=== PATIENT | female | born 1950 | race Hispanic/Latino ===

== ENCOUNTER → 2017-10-09 | Day surgery (SDC) | payer MEDICARE, OTHER ==
[2017-10-08 12:51] LABS: BASOPHILS # (AUTO) 0.1 (0.0-0.1); BASOPHILS % 0.7 % (0.0-1.0); EOSINOPHILS # (AUTO) 0.2 (0.0-0.4); EOSINOPHILS % 3.6 % (0.0-6.0); HEMATOCRIT 37.9 % (34.2-44.1); HEMOGLOBIN 12.3 g/dL (12.0-16.0); LYMPHOCYTES # (AUTO) 2.7 (1.0-3.2); LYMPHOCYTES % 40.2 % (18.0-39.1); MEAN CORPUSCULAR HEMOGLOBIN 29.7 pg (28-32); MEAN CORPUSCULAR HGB CONC 32.5 g/dL (31-35); MEAN CORPUSCULAR VOLUME 91.5 fL (81-99); MONOCYTES # (AUTO) 0.7 (0.2-0.8); MONOCYTES % 9.9 % (4.4-11.3); NEUTROPHILS # (AUTO) 3.1 (2.1-6.9); NEUTROPHILS % 45.5 % (38.7-80.0); PLATELET COUNT 224 x10e3/uL (140-360); RED BLOOD COUNT 4.14 x10e6/uL (3.6-5.1); RED CELL DISTRIBUTION WIDTH 12.8 % (11.7-14.4)
[2017-10-08 13:03] LABS: INR 0.88; PROTHROMBIN TIME 12.4 seconds (11.9-14.5)
[2017-10-08 13:10] LABS: ALANINE AMINOTRANSFERASE 19 IU/L (0-55); ALBUMIN 3.4 g/dL (3.5-5.0); ALBUMIN/GLOBULIN RATIO 0.9 (0.8-2.0); ALKALINE PHOSPHATASE 90 IU/L (40-150); BLOOD UREA NITROGEN 15 mg/dL (7-26); BUN/CREATININE RATIO 19 (6-25); CALCIUM 9.1 mg/dL (8.4-10.2); CARBON DIOXIDE 27 mmol/L (22-29); CHLORIDE 109 mmol/L (98-107); CHOL/HDL RATIO 3.2 (3.0-3.6); CHOLESTEROL 230 MD/DL (0-199); EST GLOMERULAR FILTRATION RATE > 60 ML/MIN (60-); GLUCOSE 89 mg/dL (74-118); HDL CHOLESTEROL 73 MG/DL (40-60); LDL CHOLESTEROL 139 MG/DL (60-130); SODIUM 142 mmol/L (136-145); TRIGLYCERIDES 89 MG/DL (0-149)
[~2017-10-09] VITALS: Ht 157.5 cm; Wt 72.1 kg
[~2017-10-09] MED LIST: ASPIRIN81 MG PO; FENTANYL CITRATE/PF 100MCG/2 ML INJ ONE; HEPARIN SOD/SOD CHLORIDE 2,000 ML ONE; IOPAMIDOL 370 MG/ML 200 ML INFUS..BTL INJ ONE; LIDOCAINE HCL 2% LOCAL 20 ML VIAL ONE; LOSARTAN-HCTZ1 EACH PO; MIDAZOLAM HCL 2 MG/2 ML VIAL ONE; SODIUM CHLORIDE 0.9% 1000ML 1,000 ML ONE
[2017-10-09 10:59] VITALS: BP 144/66
--- NOTE | 2017-10-09 17:00 | Operative Report ---
DATE OF PROCEDURE: October 09, 2017 PROCEDURE INDICATION: Chest pain concerning for angina pectoris, unstable, and carotid artery disease, severe, on Doppler ultrasound, concerns for TIA. PROCEDURES PERFORMED 1. Left heart catheterization. 2. Selective coronary angiography x2. 3. Aortic arch aortography. 4. Selective extracranial carotid artery angiography, bilateral. 5. Non-selective vertebral angiography, bilateral and extracranial. 6. Right common femoral artery 6-Italian Angio-Seal closure. PROCEDURE COMPLICATIONS: None. ESTIMATED BLOOD LOSS: Less than 15 mL. PROCEDURE SUMMARY: After consent was obtained, the patient was prepped and draped in a sterile fashion and the right femoral site was locally infiltrated with 2% Lidocaine. Access was obtained using micropuncture kit and a short 6-Italian sheath was placed. All catheters were railed over a leading J wire. JL4 6-Italian catheter was used for engagement of left main. A JL4 6-Italian engaged to the right coronary artery as well as across the aortic valve for hemodynamic measurements. A pigtail catheter was used for aortic arch aortography, and Ruiz I 5-Italian catheter was used for selective engagement of the common carotid arteries, bilaterally selectively to each one. FINDINGS: 1. No left ventriculogram was performed. LVEDP was in the 20-24 range. There was no significant gradient on pullback across the aortic valve. 2. Left main with luminal irregularities, enlarged caliber in the LAD and circumflex. 3. LAD had approximately 30% ostial stenosis, otherwise luminal irregularities. It gives multiple small diagonals and small septal perforators as it courses to the apex and it wraps around an end. 4. Circumflex gives a couple of obtuse marginals and this vessel has luminal irregularities. 5. The right coronary artery is dominant. It gives occluded branch, a couple of RV marginals at the mid portion and an RPDA and RPLV and terminal branches luminal irregularities otherwise throughout this vessel there is a focal area of 30% stenosis at the proximal portion. 6. The aortic arch has mild calcifications. It is type 2 aortic arch, Bovine, with common origin each of bilateral common carotid arteries from the innominate artery. The right subclavian artery also arises from the innominate artery. The left subclavian artery arises from a separate ostium from the aortic arch. Both vertebrals are patent. The right vertebral seems larger in caliber and more dominant than the left. The right vertebral artery seems to have in the area below the base of the skull and above the angle of the jaw an area of bead and strings morphology suspicious for mild to moderate fibromuscular dysplasia at this level. Otherwise, luminal irregularities are noted throughout the vertebral arteries in their extracranial portions. Each of those vertebral arteries arises from their respective subclavian arteries. 7. Common carotid arteries have luminal irregularities instilled in the bulb and pectoral carotid arteries. The right internal carotid artery in its distal portion from above the angle of the jaw to below the base of the skull has significant string and beads morphology consistent with severe, more than 70%, stenosis in the setting of fibromuscular dysplasia. Similarly, the left internal carotid artery at the distal portion has an area of beads and strings morphology between the area above the angle of the jaw to below the base of the skull. Again, at least moderate, more than 50%, beads and strings morphology consistent with fibromuscular dysplasia. CONCLUSION: 1. Fibromuscular dysplasia effecting bilateral distal internal carotid arteries, more pronounced on the right internal carotid artery and vertebral artery fibromuscular dysplasia on the right, not clearly visualized on the left. On the right vertebral, mild to moderate. 2. Mild coronary artery disease. RECOMMENDATIONS: Evaluation by neurointerventional radiology, higher level of care for consideration of pulmonary angioplasty versus continued medical therapy. The case was discussed with the patient's family members. Will optimize medical management for coronary artery disease. Job#: [id number] MTDD
== END | disposition home or self-care (01) ==
LOC: CATH LAB 10:21
PROVIDERS: ATTEND Internal Medicine Cardiovascular Disease
DX: I25.119 Atherosclerotic heart disease of native coronary artery with unspecified angina pectoris (principal); I77.3 Arterial fibromuscular dysplasia; R09.89 Other specified symptoms and signs involving the circulatory and respiratory systems; E78.5 Hyperlipidemia, unspecified; I73.9 Peripheral vascular disease, unspecified; I10 Essential (primary) hypertension; Z01.810 Encounter for preprocedural cardiovascular examination; Z01.812 Encounter for preprocedural laboratory examination; Z82.49 Family history of ischemic heart disease and other diseases of the circulatory system; Z82.3 Family history of stroke
CPT/HCPCS: 36222; 36415; 80053; 80061; 85025; 85610; 93005; 93458; J2001; J2250; J7030; Q9967

== ENCOUNTER → 2017-12-17 | Outpatient (CLI) | payer MEDICARE, OTHER ==
[~2017-12-17] MED LIST changes: -FENTANYL CITRATE/PF 100MCG/2 ML INJ ONE; -HEPARIN SOD/SOD CHLORIDE 2,000 ML ONE; -IOPAMIDOL 370 MG/ML 200 ML INFUS..BTL INJ ONE; -LIDOCAINE HCL 2% LOCAL 20 ML VIAL ONE; -MIDAZOLAM HCL 2 MG/2 ML VIAL ONE; -SODIUM CHLORIDE 0.9% 1000ML 1,000 ML ONE
--- NOTE | 2017-12-17 10:55 | Diagnostic Imaging Report ---
PROCEDURE:US RETROPERITONEAL ( KIDNEY ). COMPARISON:None. INDICATIONS:History Of Carotid FMD TECHNIQUE: Dalton-scale and color sonographic images of the bilateral kidneys and bladder where obtained in transverse and longitudinal planes. FINDINGS: RIGHT KIDNEY: Measures 9.1 cm in length. Cysts: None Solid masses: None Stones: None Hydronephrosis: None Echogenicity: Normal LEFT KIDNEY: Measures 9.3 cm in length. Cysts: None Solid masses: None Stones: None Hydronephrosis: None Echogenicity: Normal Bladder: Well-distended. Bladder jets are visualized. Survey images of the liver demonstrate no focal abnormality. CONCLUSION: Sonographically normal kidneys and bladder. Dictated by: Mady Juares M.D. on 12/17/2017 at 10:56 Electronically approved by: Mady Juares M.D. on 12/17/2017 at 10:56
--- NOTE | 2017-12-17 11:13 | Diagnostic Imaging Report ---
PROCEDURE: RENAL DOPPLER ULTRASOUND COMPARISON:None. INDICATIONS:History Of Carotid FMD FINDINGS: Multiple sagittal and axial images of the right and left kidneys were obtained. RIGHT KIDNEY: The right kidney measures 9.1 cm. The right kidney has normal echogenicity. There are no masses, hydronephrosis or calculi. Main right renal artery PSV: Ostium = 101 cm/s Proximal = 90.3 cm/s Mid = 114 cm/s Distal = 130 cm/s Right renal segmental artery PSV: Superior = 90.1 cm/s Mid 107 = cm/s Inferior 104 = cm/s RA PSV/aorta PSV = 2.3 LEFT KIDNEY: The left kidney measures 9.3 cm. The left kidney has normal echogenicity. There are no masses, hydronephrosis or calculi. Main right renal artery PSV: Ostium = 118 cm/s Proximal = 110 cm/s Mid = 116 cm/s Distal = 118 cm/s Left renal segmental artery PSV: Superior = 118 cm/s Mid 145 = cm/s Inferior 162 = cm/s RA PSV/aorta PSV = 2.1 Aorta: The proximal abdominal aorta PSV is 54.7 cm/sec. Celiac/SMA PSV IS 56.5 cm/s The distal abdominal aorta PSV is 57.5 cm/s The IVC and right and left renal veins are patent. The bladder is unremarkable. CONCLUSION: 1. Normal renal ultrasound. 2. No sonographic evidence for renal artery stenosis. Dictated by: Mady Juares M.D. on 12/17/2017 at 11:13 Electronically approved by: Mady Juraes M.D. on 12/17/2017 at 11:13
== END ==
LOC: US 09:13
PROVIDERS: ATTEND Internal Medicine Cardiovascular Disease
DX: N28.89 Other specified disorders of kidney and ureter (principal)
CPT/HCPCS: 76770; 93976

== ENCOUNTER → 2018-11-20 | Outpatient (CLI) | payer MEDICARE, OTHER | LOC: RESP 09:44 | PROVIDERS: ATTEND Internal Medicine Critical Care Medicine | DX: R05 Cough (principal); J45.909 Unspecified asthma, uncomplicated; J30.9 Allergic rhinitis, unspecified; K21.9 Gastro-esophageal reflux disease without esophagitis | CPT/HCPCS: 94060; 94727; 94729 ==

== ENCOUNTER 2019-03-21 13:02 | Emergency (ER) | payer MEDICARE, OTHER ==
[~2019-03-21] VITALS: Ht 157.5 cm; Wt 74.4 kg
--- OUTSIDE RECORDS SUMMARY | 2019-03-21 13:05 | XMS REPORT ---
Author Author [facility] Address Unknown Phone Unavailable Care Team Providers Care Sales Office Assistant Name Role Phone Mary Ellen CALDERON Unavailable Unavailable Problems This patient has no known problems. Allergies, Adverse Reactions, Alerts This patient has no known allergies or adverse reactions. Medications This patient has no known medications. Results Test Description Test Time Test Comments Text Results Atomic Results Result Comments US RENAL RETROPERITONEAL COMP [place] [address] Patient Name: IVY HICKMAN MR #: [id number] : 1950 Age/Sex: 67/F Req #: [id number] Adm Physician: Ordered by: BRI CALDERON MD Report #: [id number] Location: US Room/Bed: Procedure: [id number] US/US RENAL RETROPERITONEAL COMP Exam Date: Exam Time: REPORT STATUS: Signed PROCEDURE: US RETROPERITONEAL ( KIDNEY ). COMPARISON: None. INDICATIONS: History Of Carotid FMD TECHNIQUE: Dalton- scale and color sonographic images of the bilateral kidneys and bladder where obtained in transverse and longitudinal planes. FINDINGS: RIGHT KIDNEY: Measures 9.1 cm in length. Cysts: None Solid masses: None Stones: None Hydronephrosis: None Echogenicity: Normal LEFT KIDNEY: Measures 9.3 cm in length. Cysts: None Solid masses: None Stones: None Hydronephrosis: None Echogenicity: Normal Bladder: Well-distended. Bladder jets are visualized. Survey images of the liver demonstrate no focal abnormality. CONCLUSION: Sonographically normal kidneys and bladder. Dictated by: Matilda Juares M.D. on 12/17/2017 at 10:56 Electronically approved by: Matilda Juares M.D. on 12/17/2017 at 10:56 Dictated By: MATILDA JUARES MD 105 Transcribed By: BEAU on 12/17/17 1056 COPY TO: BRI CALDERON MD US RENAL DOPPLER LTD [place] [address] Patient Name: IVY HICKMAN MR #: [id number] : 1950 Age/Sex: 67/F Req #: [id number] Adm Physician: Ordered by: BRI CALDERON MD Report #: [id number] Location: US Room/Bed: Procedure: [id number] US/US RENAL DOPPLER LTD Exam Date: Exam Time: REPORT STATUS: Signed PROCEDURE: RENAL DOPPLER ULTRASOUND COMPARISON: None. INDICATIONS: History Of Carotid FMD FINDINGS: Multiple sagittal and axial images of the right and left kidneys were obtained. RIGHT KIDNEY: The right kidney measures 9.1 cm. The right kidney has normal echogenicity. There are no masses, hydronephrosis or calculi. Main right renal artery PSV: Kjoxov=741 cm/s Proximal=90.3 cm/s Mys=128 cm/s Ktbpsn=495 cm/s Right renal segmental artery PSV: Superior=90.1 cm/s Mid 107=cm/s Inferior 104=cm/s RA PSV/aorta PSV=2.3 LEFT KIDNEY: The left kidney measures 9.3 cm. The left kidney has normal echogenicity. There are no masses, hydronephrosis or calculi. Main right renal artery PSV: Boaxxa=121 cm/s Powczytf=286 cm/s Tbv=256 cm/s Nucyjr=735 cm/s Left renal segmental artery PSV: Hlbxpvsd=706 cm/s Mid 145=cm/s Inferior 162=cm/s RA PSV/aorta PSV=2.1 Aorta: The proximal abdominal aorta PSV is 54.7 cm/sec. Celiac/SMA PSV IS 56.5 cm/s The distal abdominal aorta PSV is 57.5 cm/s The IVC and right and left renal veins are patent. The bladder is unremarkable. CONCLUSION: 1. Normal renal ultrasound. 2. No sonographic evidence for renal artery stenosis. Dictated by: Matilda Juares M.D. on 12/17/2017 at 11:13 Electronically approved by: Matilda Juares M.D. on 12/17/2017 at 11:13 Dictated By: MATILDA JUARES MD [id number] Transcribed By: BEAU on 12/17/17 1113 COPY TO: BRI CALDERON MD
--- OUTSIDE RECORDS SUMMARY | 2019-03-21 13:05 | XMS REPORT | Clinical Summary ---
Author Author [facility] Address Unknown Phone Unavailable Care Team Providers Care Career Discovery Teacher Name Role Phone Asked, No Pcp PCP Unavailable Allergies No Known Allergies Medications End Date Status Medication Sig Dispensed Refills Start Date Active losartan (COZAAR) 25 MG Take 25 mg by 0 tablet mouth daily. Active atorvastatin (LIPITOR) 20 Take 20 mg by 0 MG tablet mouth daily. Default OP ins Active aspirin (ECOTRIN) 81 MG Take 81 mg by 0 enteric coated tablet mouth daily. Active calcium carbonate-vitamin Take 1 tablet 0 D3 500 mg-200 unit per by mouth 2 tablet (two) times a day with meals. Active OXYBUTYNIN CHLORIDE ORAL Take by 0 mouth. 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 Fibromuscular dysplasia 11/07/2017 Pseudoaneurysm of femoral artery 11/07/2017 Overview: Added automatically from request for surgery [id number] Encounters Care Team Description Date Type Specialty Deshawn Machado MD Cerebral aneurysm, nonruptured 11/06/2018 Hospital Radiology Encounter after 03/20/2018 Social History Date Tobacco Use Types Packs/Day Years Used Never Smoker Smokeless Tobacco: Never Used Alcohol Use Drinks/Week oz/Week Comments No Sex Assigned at Date Recorded Not on file Industry Job Start Date Occupation Not on file Not on file Not on file Travel End Travel History Travel Start No recent travel history available. Last Filed Vital Signs Not on file Plan of Treatment Health Maintenance Due Date Last Done Comments BREAST CANCER SCREENING 2001 COLONOSCOPY SCREENING 2001 SHINGLES VACCINES (#1) 2001 65+ PNEUMOCOCCAL VACCINE 2016 (1 of 2 - PCV13) INFLUENZA VACCINE 04/16/2019 Implants Device Identifier Shelf Expiration Date Model / Serial / Lot Implanted Type Area Manufactur er [id number] / / Catheter Angiography Diag [facility] Surgical N/A: N/A BSC Torque Coat Padder Ii 5fr 100cm - Implants; PERIPHERAL [id number] Expanders; INTERVENTI Implanted: 11/07/2017 (Quantity not Extenders; ON on file) Surgical VASCULAR Wires WANDA [id number] / / Catheter Angiography Diag Sim2 Surgical N/A: N/A [facility] Torqueable Coat Padder Ii [id number] - Implants; PERIPHERAL [id number] Expanders; INTERVENTI Implanted: 11/07/2017 (Quantity not Extenders; ON on file) Surgical VASCULAR Wires WANDA 08/19/2019 700 [id number] 05U / / [id number] Device Vascular Vascade Closure Surgical N/A: N/A CARDIVA Device 5fr - [id number] Implants; MEDICAL Implanted: 11/07/2017 (Quantity not Expanders; INC on file) Extenders; Surgical Wires Procedures Comments Procedure Name Priority Date/Time Associated Diagnosis CT ANGIOGRAM HEAD W WO Routine 11/06/2018 Cerebral aneurysm, CONTRAST 10:16 AM RAIL ASSEMBLER nonruptured ESTIMATED GFR Routine 11/06/2018 9:55 AM RAIL ASSEMBLER POC CREATININE Routine 11/06/2018 9:55 AM RAIL ASSEMBLER after 03/20/2018 Results * CTA Head W Wo Contrast (11/06/2018 10:16 AM RAIL ASSEMBLER) Specimen Narrative Performed At Study:CT ANGIOGRAM HEAD W WO CONTRAST RADIANT History:I67.1 Cerebral aneurysmnonruptured, 2 [id number] follow up eval . COMPARISON: Cerebral angiogram 11/07/2017 TECHNIQUE: CT angiogram of the head obtained after intravenous administration of iodinated contrast. Computerized reformatted images and 3-D MIP images obtained and archived. CT imaging was performed with iterative reconstruction technique and/or automated exposure control to reduce radiation dose. FINDINGS: The upper cervical CCA is bilaterally is patent with appearance of beading compatible with FMD. There is no significant stenosis of the bilateral intracranial ICA, MCA, TANNER, and EQUIPMENT OPERATOR/LABORER/SUPERVISOR.. The basilar artery and intracranial vertebral arteries are patent without significant stenosis.A very subtle 1 mm proximal A1 TANNER aneurysm is stable better seen on the sagittal images. The other described supraclinoid right ICA 1 mm aneurysm is not well-seen in this study because of its small size. No new aneurysms are seen. There are no signs of vascular malformations. The superior sagittal, straight, bilateral transverse, and sigmoid dural venous sinuses are opacified. There is no acute intracranial hemorrhage, midline shift, hydrocephalus, edema, or extra-axial collections. The orbits are unremarkable.. The visualized paranasal sinuses and visualized mastoid air cells are well aerated. IMPRESSION: 1 mm proximal A1 TANNER aneurysm stable. The previously described 1 mm supraclinoid right ICA aneurysm not well-seen in this study likely due to its very small size. No new aneurysms are seen. No central branch stenosis or occlusion. Changes of FMD in the distal cervical ICA bilaterally without significant stenosis. [id number] Procedure Note Interface, Radiology Results Incoming - 11/06/2018 11:53 AM RAIL ASSEMBLER Study:CT ANGIOGRAM HEAD W WO CONTRAST History:I67.1 Cerebral aneurysm nonruptured, 2 aneurysms 1yr follow up eval . COMPARISON: Cerebral angiogram 11/07/2017 TECHNIQUE: CT angiogram of the head obtained after intravenous administration of iodinated contrast. Computerized reformatted images and 3-D MIP images obtained and archived. CT imaging was performed with iterative reconstruction technique and/or automated exposure control to reduce radiation dose. FINDINGS: The upper cervical CCA is bilaterally is patent with appearance of beading compatible with FMD. There is no significant stenosis of the bilateral intracranial ICA, MCA, TANNER, and EQUIPMENT OPERATOR/LABORER/SUPERVISOR.. The basilar artery and intracranial vertebral arteries are patent without significant stenosis. A very subtle 1 mm proximal A1 TANNER aneurysm is stable better seen on the sagittal images. The other described supraclinoid right ICA 1 mm aneurysm is not well-seen in this study because of its small size. No new aneurysms are seen. There are no signs of vascular malformations. The superior sagittal, straight, bilateral transverse, and sigmoid dural venous sinuses are opacified. There is no acute intracranial hemorrhage, midline shift, hydrocephalus, edema, or extra-axial collections. The orbits are unremarkable.. The visualized paranasal sinuses and visualized mastoid air cells are well aerated. IMPRESSION: 1 mm proximal A1 TANNER aneurysm stable. The previously described 1 mm supraclinoid right ICA aneurysm not well-seen in this study likely due to its very small size. No new aneurysms are seen. No central branch stenosis or occlusion. Changes of FMD in the distal cervical ICA bilaterally without significant stenosis. [id number] Performing Organization Address City/State/Zipcode Phone Number [facility] [address] [place] [address] * Estimated GFR (11/06/2018 9:55 AM RAIL ASSEMBLER) [facility] Estimated GFR 76 mL/min/1.73 m2 [place] Comment: [facility] rpretation G1 >=90 Normal or high G2 60-89Mildly decreased [id number] Mildly to moderately decreased Q9a49-22 Moderately to severely decreased G4 15-29Severely decreased G5 <15Kidney failure The eGFR was calculated using the Chronic Kidney Disease Epidemiology Collaboration (CKD-EPI) equation. Interpretation is based on recommendations of the National Kidney Foundation-Kidney Disease Outcomes Quality Initiative (NKF-KDOQI) published in 2014. Specimen Blood Performing Organization Address [facility] Phone Number [address] [place] [address] PATHOLOGY AND GENOMIC MEDICINE [address] * POC creatinine (11/06/2018 9:55 AM RAIL ASSEMBLER) [facility] POC creatinine 0.8Comment: performed by 0.5 - 0.9 mg/dl [place] [id number] [facility] Specimen Blood Performing Organization Address [facility]/Zipcode Phone Number [address] [place] [address] PATHOLOGY AND GENOMIC MEDICINE [address] after 03/20/2018 Insurance Type Payer Benefit Subscriber ID Effective Phone Address Plan / Dates Group Medicare MEDICARE MEDICARE xxxxxxxxxx 2016- [place], PART A AND Present [place] B O CIGNA CIGNA OPEN xxxxxxxxxxx 2016-P ACCESS/NET resent WORK Advance Directives Patient has advance care planning documents on file. For more information, marielena e contact: Lakhwinder Snow [address] [place] [address]
[2019-03-21] MEDS ORDERED: IBUPROFEN 200 MG TAB ONE (13:34)
[2019-03-21] MEDS ORDERED: NAPROSYN500 MG PO (13:40)
[2019-03-21] MEDS ORDERED: IBUPROFEN 600 MG TAB PO ONE (14:00)
--- NOTE | 2019-03-21 14:58 | Diagnostic Imaging Report ---
T SPINE 2VW - HOPD - 3 views HISTORY: Pain COMPARISON: None available. FINDINGS: No acute displaced fracture. Osseous alignment is within normal limits. Vertebral body heights are maintained. The soft tissues appear unremarkable. IMPRESSION: No acute radiographic abnormality. Signed by: Dr. Reji Low MD on 03/21/2019 2:55 PM
--- NOTE | 2019-03-21 14:59 | Diagnostic Imaging Report ---
Lumbar Spine Radiographs: 3 views HISTORY: Pain COMPARISON: None available. DISCUSSION: Some of the osseous structures are partially obscured by stool and bowel gas. There are five non-rib bearing lumbar vertebral bodies. The alignment of the spine is within normal limits. No displaced fracture or compression deformity is identified. Disc Spaces: The disc spaces are well maintained. Facets: The facet joints are unremarkable. IMPRESSION: No acute radiographic abnormality. Signed by: Dr. Reji Low MD on 03/21/2019 2:56 PM
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
[2019-03-21 15:22] VITALS: BP 153/80
== END 2019-03-21 15:18 | disposition home or self-care (01) ==
LOC: FSED 13:02
DX: M54.2 Cervicalgia (principal); M54.6 Pain in thoracic spine; M54.5 Low back pain; S16.1XXA Strain of muscle, fascia and tendon at neck level, initial encounter; S23.3XXA Sprain of ligaments of thoracic spine, initial encounter; S33.5XXA Sprain of ligaments of lumbar spine, initial encounter; V43.52XA Car driver injured in collision with other type car in traffic accident, initial encounter; Y92.488 Other paved roadways as the place of occurrence of the external cause; I10 Essential (primary) hypertension
CPT/HCPCS: 72070; 72100; 72125; 99283

== ENCOUNTER 2021-01-01 17:51 | Emergency (ER) | payer MEDICARE, OTHER ==
[~2021-01-01] VITALS: Ht 157.5 cm; Wt 72.7 kg
[~2021-01-01 17:51] MED LIST changes: +NAPROSYN500 MG PO
[2021-01-01] MEDS ORDERED: CELEBREX200 MG PO (18:35)
[2021-01-01] MEDS ORDERED: OXYBUTYNIN CHLOR5 MG PO (18:35)
[2021-01-01] MEDS ORDERED: METOPROLOL SUCC25 MG PO (18:35)
[2021-01-01] MEDS ORDERED: NEXIUM20 MG PO (18:35)
[2021-01-01] MEDS ORDERED: PROBIOTIC & AC1 EACH PO (18:35)
[2021-01-01] MEDS ORDERED: HYDROCHLOROTHIA25 MG PO (18:35)
[2021-01-01] MEDS ORDERED: ATORVASTATIN CA20 MG PO (18:35)
[2021-01-01] MEDS ORDERED: VITAMIN D350 MCG (18:35)
[2021-01-01] MEDS ORDERED: BIOTIN5 M1 (18:35)
[2021-01-01 22:01] VITALS: BP 147/62
== END 2021-01-01 22:29 | disposition home or self-care (01) ==
LOC: FSED 19:20
DX: R10.11 Right upper quadrant pain (principal); R05 Cough; I10 Essential (primary) hypertension; E78.5 Hyperlipidemia, unspecified; K21.9 Gastro-esophageal reflux disease without esophagitis
CPT/HCPCS: 76705; 80053; 81003; 85025; 99284

== ENCOUNTER → 2021-01-17 | Outpatient (CLI) | payer MEDICARE, OTHER ==
[~2021-01-17] MED LIST changes: +ATORVASTATIN CA20 MG PO; +BIOTIN5 M1; +CELEBREX200 MG PO; +HYDROCHLOROTHIA25 MG PO; +IOPAMIDOL 370 MG/ML 200 ML INFUS..BTL INJ ONE; +METOPROLOL SUCC25 MG PO; +NEXIUM20 MG PO; +OXYBUTYNIN CHLOR5 MG PO; +PROBIOTIC & AC1 EACH PO; +SODIUM CHLORIDE 0.9% 100 ML ONE; +VITAMIN D350 MCG
[2021-01-17 11:14] LABS: BLOOD UREA NITROGEN 12 mg/dL (7-26); BUN/CREATININE RATIO 15 (6-25); CREATININE, SERUM 0.78 mg/dL (0.57-1.11); EST GLOMERULAR FILTRATION RATE > 60 ML/MIN (60-)
== END ==
LOC: CT 10:27
PROVIDERS: ATTEND Internal Medicine Cardiovascular Disease
DX: I73.9 Peripheral vascular disease, unspecified (principal); R10.30 Lower abdominal pain, unspecified
CPT/HCPCS: 36415; 75635; 82565; 84520; J7050; Q9967

== ENCOUNTER 2023-08-16 15:17 | Emergency (ER) | payer MEDICARE, OTHER ==
[~2023-08-16] VITALS: Ht 157.5 cm; Wt 74.0 kg
[~2023-08-16 15:17] MED LIST changes: -IOPAMIDOL 370 MG/ML 200 ML INFUS..BTL INJ ONE; -SODIUM CHLORIDE 0.9% 100 ML ONE
[2023-08-16] MEDS ORDERED: ACETAMINOPHEN 325 MG TAB PO ONE (16:45)
[2023-08-16] MEDS ORDERED: NAPROSYN500 MG PO (17:31)
[2023-08-16] MEDS ORDERED: CYCLOBENZAPRINE5 MG PO (17:32)
[2023-08-16 17:38] VITALS: O2SAT 100
== END 2023-08-16 17:43 | disposition home or self-care (01) ==
LOC: FSED 15:34
DX: S16.1XXA Strain of muscle, fascia and tendon at neck level, initial encounter (principal); M62.838 Other muscle spasm; R51.9 Headache, unspecified; V43.52XA Car driver injured in collision with other type car in traffic accident, initial encounter; Y92.488 Other paved roadways as the place of occurrence of the external cause; I10 Essential (primary) hypertension; E78.5 Hyperlipidemia, unspecified; K21.9 Gastro-esophageal reflux disease without esophagitis
CPT/HCPCS: 70450; 72125; 99284

== ENCOUNTER 2025-03-16 07:01 | Day surgery (SDC) | payer MEDICARE, OTHER ==
[2025-03-12 13:00] LABS: BASOPHILS % 0.7 % (0.0-1.0); EOSINOPHILS % 3.2 % (0.0-6.0); LYMPHOCYTES % 21.8 % (18.0-39.1); MONOCYTES % 11.2 % (4.4-11.3); NEUTROPHILS % 62.8 % (38.7-80.0); RED CELL DISTRIBUTION WIDTH 13.4 % (11.7-14.4)
[2025-03-12 13:25] LABS: INR 0.95
[2025-03-12 13:32] LABS: CHOL/HDL RATIO 1.7 (3.0-3.6); EST GLOMERULAR FILTRATION RATE 67.0 ML/MIN (>=60); LDL CHOLESTEROL 59.0 MG/DL (60-130)
[2025-03-12 13:45] LABS: CORONAVIRUS COVID-19 AG NEGATIVE (NEGATIVE)
[2025-03-16] VITALS (13 sets, daily range): BP systolic 125–165; BP diastolic 53–66; PULSE 55–67; RESP 13–20; TEMP 97.6–98.6; O2SAT 96–100
[~2025-03-16] VITALS: Ht 157.5 cm; Wt 70.8 kg
[~2025-03-16 07:01] MED LIST changes: +CEPHALEXIN250 MG PO; +CRAN; +CYCLOBENZAPRINE5 MG PO; +GEMTESA75 MG; +MULTI-VITAMIN1 EACH PO; +PROBIOTIC; +PROBIOTIC1 EAC2; +TRIAMTERENE-HCTZ1 EA PO; +VESICARE5 MG PO
[2025-03-16] MEDS ORDERED: VERAPAMIL HCL 2.5 MG/ML 2 ML VIAL ONE (07:16)
[2025-03-16] MEDS ORDERED: HEPARIN SOD (PORCINE) 1000 UNIT/ML 30ML ONE (07:16)
[2025-03-16] MEDS ORDERED: LIDOCAINE HCL 2% LOCAL 20 ML VIAL ONE (07:16)
[2025-03-16] MEDS ORDERED: IOPAMIDOL 370 MG/ML 100 ML INFUS..BTL INJ ONE (07:17)
[2025-03-16] MEDS ORDERED: SODIUM CHLORIDE 0.9% 1000ML 1,000 ML ONE (07:17)
[2025-03-16] MEDS ORDERED: NITROGLYCERIN/D5W 200 MCG/ML 250 ML ONE (07:17)
[2025-03-16] MEDS ORDERED: HEPARIN SOD/SOD CHLORIDE 2,000 ML ONE (07:17)
[2025-03-16] MEDS: ASPIRIN 325 MG TAB ONE (07:50)
[2025-03-16] MEDS ORDERED: MIDAZOLAM HCL 2 MG/2 ML VIAL ONE (09:18)
[2025-03-16] MEDS ORDERED: FENTANYL CITRATE/PF 100MCG/2 ML INJ ONE (09:18)
== END 2025-03-16 12:30 | disposition home or self-care (01) ==
LOC: CATH LAB 07:01
PROVIDERS: ATTEND Internal Medicine Cardiovascular Disease
DX: I25.110 Atherosclerotic heart disease of native coronary artery with unstable angina pectoris (principal); I10 Essential (primary) hypertension; E78.00 Pure hypercholesterolemia, unspecified; K21.9 Gastro-esophageal reflux disease without esophagitis; R32 Unspecified urinary incontinence; Z01.810 Encounter for preprocedural cardiovascular examination; Z01.812 Encounter for preprocedural laboratory examination; Z79.899 Other long term (current) drug therapy; Z87.440 Personal history of urinary (tract) infections
CPT/HCPCS: 36415; 76937; 80053; 80061; 85025; 85610; 85730; 87426; 93005; 93458; C1769; C1887; J1644; J2003; J2250; J3010; J7030; Q9967; 99152